=== PATIENT | female | born 1990 | race Caucasian/White ===

== ENCOUNTER 2017-02-20 23:45 | Inpatient (IN) | payer BC, SELFPAY ==
[2017-02-21] MEDS ORDERED: Penicillin G Potassium 5 MILLUNITS in Sodium Chloride 0.9% 100 ML IV ONE (00:59)
[2017-02-21] MEDS ORDERED: Penicillin G Potassium 3 MILLUNITS in Sodium Chloride 0.9% 100 ML IV SCH (01:00)
[2017-02-21] MEDS: Penicillin G Potassium 3 MILLUNITS in Sodium Chloride 0.9% 100 ML IV SCH ×3 (04:44→14:54)
[2017-02-21] MEDS ORDERED: Lactated Ringers 500 ML IV ONE (05:17)
[2017-02-21] MEDS ORDERED: Carboprost Tromethamine 250 MCG/1 ML Amp IM PRN (05:17)
[2017-02-21] MEDS ORDERED: Misoprostol 400 MCG (4 X 100 MCG TAB) RECTAL PRN (05:17)
[2017-02-21] MEDS ORDERED: Ondansetron 4 MG/2 ML SDV IV PRN (05:17)
[2017-02-21] MEDS ORDERED: Lidocaine 1% 30 ML SDV INJECT PRN (05:17)
[2017-02-21] MEDS ORDERED: Methylergonovine 0.2 MG/1 ML Amp IM PRN (05:17)
[2017-02-21] MEDS ORDERED: Sodium Chloride 0.9% 10 ML Syringe FLUSH PRN ×2 (05:17→12:16)
[2017-02-21] MEDS: Oxytocin/Normal Saline 30 UNIT/500 ML BAG IV SCH ×2 (05:20→14:30)
[2017-02-21] MEDS: Lactated Ringers 1,000 ML IV SCH ×3 (05:20→07:40)
[2017-02-21] MEDS ORDERED: fentaNYL 100 MCG/2 ML SDV ONE (06:48)
--- NOTE | 2017-02-21 07:24 | PCM.SN ---
- Free Text/Narrative Note: Called to provide labor pain relief to this patient via intrathecal. After monitors on, and consent signed, proceeded. With patient in supine position, sterile prep/drape. Pt with increased edema of back. Skin wheal with 1% lidocaine. LP X 1 with 24g pencan spinal needle at L3-4. Positive, free flowing clear CSF. No heme, no paresthesia. Then 6mg mpf hyperbaric spinal 0.75% marcaine plus sufenta 20mcg, fentanyl 30mcg, preservative free normal saline 0.4ml and saline wash given intrathecally. Pt then to supine. Maternal SBP and FHT's remained stable after, and patient reported pain relief with subsequent contractions.
--- NOTE | 2017-02-21 09:14 | HP ---
PATIENT IDENTIFICATION: Maria Victoria Ba is a 26-year-old, G2, P1-0-0-1, intrauterine at 39-1/7th weeks on date of admission, 39-2/7th weeks currently, confirmed by 9-11/11-week ultrasound, who presents with contractions. HISTORY OF PRESENT ILLNESS: The patient was evaluated in the clinic earlier today, was found to be 3 cm, 60% effaced, -1 station, vertex suspected, started having contractions thereafter. They have been increasing in frequency and intensely to the point that they are coming every 2 to 3 minutes, felt in the lower back and radiating toward the front and rated 5 to 6/10 on the pain scale and sometimes causing her to breathe through them, nothing seems to make them better, time has made it worse, associated with this has been some minimal bloody show which was noted in the clinic earlier today. To put this in context, she is GBS positive. Records were called for and reviewed as below and supplemented by patient history. ANTEPARTUM LABS: ABO blood type A positive, negative antibody. Rubella immune. RPR nonreactive. Negative hepatitis B surface antigen. Negative hep C, HIV, GC, and Chlamydia. Wet prep within normal limits. One-hour GTT was 98 on 11/22/2016, with platelets of 167,000 and hemoglobin of 11.1. Last platelets on 01/23/2017, were 159,000. OBSTETRICAL HISTORY: On 11/29/2012, 38-1/7th weeks, delivered via spontaneous vaginal delivery of female, weighing 3232 g. ALLERGIES: None. MEDICATIONS: vitamins. PAST MEDICAL/PAST SURGICAL HISTORY: 1. 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 IUD back in 2012 and 2013. She has had a history of extra digits bilaterally in the hands and large toes. 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 2. 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 3. Gestational thrombocytopenia with last . 4. Dysfunctional uterine bleeding, requiring OCPs in the past. 5. Anxiety and depression within the last couple years has been noticed, not currently on any medications. FAMILY HISTORY: Breast cancer in maternal grandmother. Maternal grandfather and paternal grandmother with diabetes. Heart disease in maternal grandfather. Maternal grandfather, paternal grandmother, and grandfather with hypertension. Brother had extra digits and other extended paternal family members have as well. Seizures in maternal grandfather. Negative family history of defects, anesthesia problems or bleeding problems. SOCIAL HISTORY: Lives in [place] with her boyfriend, Jeramy, who presents with her and her mother also presents with her. She is not . She has been working at [employer] in the past. Nonsmoker. No pets in the home. No alcohol or drug use elicited. REVIEW OF SYSTEMS: Otherwise reviewed and felt to be noncontributory. The patient denies any headaches, visual changes, or upper abdominal pain. OBJECTIVE: Vital Signs: Initial evaluation started on 02/20/2017; blood pressure 125/80, heart rate 81, temperature 98.9, the patient's respiratory rate is between 12 and 16. Appearance: Female appears her stated age, breathing through contractions, but answering questions appropriately in between. HEENT: Head is atraumatic. EOMs intact. PERRLA. No scleral icterus. No obvious otorhinorrhea. Mucous membranes moist. Neck: No obvious tenderness. Lungs: Clear to auscultation bilaterally. No increased work of breathing. Heart: S1 and S2. Regular rate and rhythm. No obvious extra heart sounds, murmurs, rubs, or gallops. Abdomen: Soft, nontender, and nondistended. Bowel sounds positive. No other organomegaly, pulsatile masses, or obvious hernias. No rebound, rigidity, or guarding with monitors applied. : Normal external female genitalia. Normal position and presentation of urethra. Vaginal Exam: Per nurse upon initial evaluation, revealed to be 4 cm. She was followed for a few hours more and then was found to be 5 to 6 cm upon my evaluation, bulging bag of water and penicillin had been given, therefore artificial rupture of membranes done with minimal amount of fluid noted, appears to be clear with some bloody show. She was 80% effaced and 0 station. Extremities: Trace peripheral edema. Deep tendon reflexes 2 to 3/4 bilaterally and symmetric in lower extremities. Fused toes between the 1st and 2nd digits noted bilaterally in the feet. Psych: Mood and affect congruent. Judgment and insight intact. Skin: No cyanosis, clubbing, or jaundice. LABORATORY DATA: CBC notable for thrombocytopenia with platelets of 148,000 and white cell count 6.6, hemoglobin 11.6. Tocometer currently reveals contractions every 2 to 4 minutes apart, heart tones in the 130s range and felt to be reactive and reassuring. ASSESSMENT: 1. Intrauterine at 39-2/7th weeks by 9-11/11-week ultrasound. 2. Contractions with cervical change-labor. 3. Group B Streptococcus positive status. Antibiotics were given shortly after admission and will be continued. Please see orders. 4. Gestational thrombocytopenia. Platelets are low. The patient had this in the past, and blood pressures appear to be stable. Continue to follow clinically and closely for any HELLP syndrome or preeclampsia-type issues. 5. History of previa noted early on ultrasounds during the -resolved. 6. History of generalized anxiety disorder and depression, currently controlled. 7. 2, para 1-0-0-1. PLAN: The patient will be admitted, penicillin has been started for GBS positive status. As she has continued to labor, artificial rupture of membranes has been done as above and we will continue to follow clinically and closely. The patient understands and agrees with the above treatment plan. [facility] /[id number]
--- NOTE | 2017-02-21 09:47 | OBOUT ---
DATE: 02/20/2017-02/21/2017 DATE AND TIME OF NST: Date: 02/20/2017 through 02/21/2017. Time: 2354 hours through 0014 hours. REASON FOR NST: 1. Intrauterine at 39-2/7th weeks by 9 and 4/7th-week ultrasound. 2. Gestational thrombocytopenia. 3. History of previa during the . 4. G2, P1-0-0-1. NST INTERPRETATION: During this time period, heart tone baseline is approximately 120, and there are at least two 15 x 15 beat per minute acceleration, making this strip reactive. It is also noted to be reassuring. Tocometer when reading reveals potential of 3 to 4 contractions during this time period felt by patient. ASSESSMENT/PLAN: 1. Nonstress test-reactive and reassuring. 2. Tocometer with contractions. PLAN: Please see admit history and physical for further details. [facility] /[id number]
[2017-02-21] MEDS ORDERED: Oxytocin 10 Units/1 ML SDV IM PRN (12:16)
[2017-02-21] MEDS ORDERED: Benzocaine/Menthol 20%-0.5% Spray 56 GM Canister TOP PRN (12:16)
[2017-02-21] MEDS ORDERED: Simethicone 80 MG Tab.Chew PO PRN (12:16)
[2017-02-21] MEDS ORDERED: Zolpidem 5 MG Tab PO PRN (12:16)
[2017-02-21] MEDS ORDERED: fentaNYL 100 MCG/2 ML SDV ITHECAL ONE (13:24)
[2017-02-21] MEDS: Ibuprofen 800 MG Tab PO PRN (21:46)
[2017-02-21] MEDS: Docusate Sodium 100 MG Cap PO PRN (21:46)
[2017-02-22] MEDS: Acetaminophen 325 MG Tab PO PRN ×2 (01:49→21:19)
[2017-02-22] MEDS: Ibuprofen 800 MG Tab PO PRN ×3 (05:45→22:24)
--- NOTE | 2017-02-22 09:17 | DEL ---
DATE: 02/21/2017 PREOPERATIVE DIAGNOSES: 1. Intrauterine at 39-2/7th weeks by 9-4/7th-week ultrasound. 2. Contractions with cervical change-labor upon admission. 3. Gestational thrombocytopenia. 4. Group B Streptococcus positive-antibiotics given. 5. History of previa earlier in the -resolved. 6. History of generalized anxiety disorder/depression-resolved. 7. 2, para 1-0-0-1. POSTOPERATIVE DIAGNOSES: 1. Intrauterine at 39-2/7th weeks by 9-4/7th-week ultrasound- delivered. 2. Contractions with cervical change-labor upon admission. 3. Gestational thrombocytopenia. 4. Group B Streptococcus positive-antibiotics given. 5. History of previa earlier in the -resolved. 6. History of generalized anxiety disorder/depression-resolved. 7. 2, para 1-0-0-1. PROCEDURES PERFORMED: NST on 02/20/2017, followed by artificial rupture of membranes, Pitocin augmentation, and spontaneous vaginal delivery on 02/21/2017. ANESTHESIA/ANALGESIA: The patient did receive an intrathecal in the first stage of labor. ESTIMATED BLOOD LOSS: 200 mL. FINDINGS: Male, scores and weight pending. 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 Due to her GBS status, penicillin was started immediately upon admission as it was anticipated that she is going to continue into labor. She continued into labor and underwent artificial rupture of membranes on the morning of 02/21/2017, with some Pitocin augmentation. She was found to be complete, I was called to the room, started pushing with contractions. vertex was subsequently delivered in a SANDRA presentation followed by anterior and posterior shoulder with minimal difficulty. Mouth and nares were suctioned. Cord was doubly clamped and cut, and infant was brought over to team for resuscitation. Then, approximately 10 mL of cord blood was obtained for labs. Placenta then delivered with gentle cord traction and fundal massage within 5 minutes. Perineum, vagina, and perirectal areas were then examined without any tears or lacerations. Mother and are currently stable at the time of dictation. [facility] /[id number]
[2017-02-22] MEDS: Docusate Sodium 100 MG Cap PO PRN (09:28)
[2017-02-22] MEDS: Prenatal Multivitamin with Calcium/Folic Acid/Iron Tab PO SCH (09:28)
[2017-02-22] MEDS: Acetaminophen/oxyCODONE 325-5 MG Tab PO PRN (09:28)
--- NOTE | 2017-02-22 10:47 | PN ---
DATE: 02/22/2017 day #1. SUBJECTIVE: The patient is tolerating p.o., ambulating, urinating, passing flatus, had a bowel movement this morning. The patient has been complaining of cramping pain and is requesting something stronger. The patient denies any headaches, visual changes, or upper abdominal pain. OBJECTIVE: Vital Signs: Temperature 98, heart rate 88, blood pressure 108/70, respiratory rate 16. Lungs: Clear to auscultation bilaterally. Heart: S1 and S2. Regular rate and rhythm. Pelvic: Firm uterus approximately -1 below umbilicus. Extremities: Trace pedal edema. No calf pain. LABORATORY DATA: White cell count 6.5, hemoglobin 10.1, and platelets 114,000. ASSESSMENT AND PLAN: 1. day #1, status post spontaneous vaginal delivery. 2. Gestational thrombocytopenia and thrombocytopenia. Platelets now are 114,000, seem to be dropping. There are no other signs or symptoms of concern at this point in time. We will continue to follow clinically and closely. Recheck CBC tomorrow and possible discharge tomorrow. The patient understands and agrees with the above treatment plan. [facility] /[id number]
[2017-02-23] MEDS: Acetaminophen/oxyCODONE 325-5 MG Tab PO PRN (01:01)
[2017-02-23] MEDS: Ibuprofen 800 MG Tab PO PRN (06:38)
[2017-02-23] MEDS: Prenatal Multivitamin with Calcium/Folic Acid/Iron Tab PO SCH (09:52)
[2017-02-23] MEDS: Acetaminophen 325 MG Tab PO PRN (09:52)
[2017-02-23] MEDS: Docusate Sodium 100 MG Cap PO PRN (09:52)
[2017-02-23 11:06] VITALS: BP 129/70
--- NOTE | 2017-02-24 07:18 | DISCH ---
PATIENT ADMITTED ON 02/20/2017 ADMIT DIAGNOSES: 1. Intrauterine at 39 and 2/7th weeks by 9 and 4/7th-week ultrasound. 2. Active labor. 3. Gestational thrombocytopenia. 4. GBS positive - antibiotics given appropriately. 5. History of previa - resolved. 6. History of generalized anxiety disorder/depression - resolved. 7. G2, P1-0-0-1. DISCHARGE DIAGNOSES: 1. Intrauterine at 39 and 2/7th weeks by 9 and 4/7th-week ultrasound-delivered. 2. Anemia of acute blood loss with hemoglobin dropping from 11.6-9.7. 3. Active labor. 4. Gestational thrombocytopenia, platelets stable at 126,000 on date of discharge. 5. GBS positive - antibiotics given appropriately. 6. History of previa - resolved. 7. History of generalized anxiety disorder/depression - resolved. 8. G2, P1-0-0-1. PROCEDURE PERFORMED: NST 02/20/2017. Artificial rupture of membranes, Pitocin augmentation and spontaneous vaginal delivery on 02/21/[address] Jaeger. HISTORY OF PRESENT ILLNESS: Please see H and P. SUMMARY OF HOSPITAL COURSE: The patient was admitted on the above date with the above diagnoses, was found to be in active labor. Penicillin was started due to her GBS positive status. Her platelets were 148,000 upon admit. Subsequently underwent the above procedures, then went on to have a spontaneous vaginal delivery yielding a male with scores of 7 and 9, weighing 3940 g (8 pounds 11 ounces). day #1, please see progress note. day #2, date of discharge, the patient was tolerating p.o., was ambulating, urinating, passing flatus. White cell count 5.2, hemoglobin 9.7, platelets 126,000 which is up from 114,000 on 02/22/2017. PHYSICAL EXAMINATION: Vital Signs: Last set of vitals updated and listed in the chart. Temperature 98, heart rate 88, blood pressure 108/70, and respiratory rate 16. Lungs: Clear to auscultation bilaterally. Heart: S1, S2. Regular rate and rhythm. Abdomen: Firm uterus around the umbilicus. Extremities: Trace pedal edema. No calf pain. She does have bilateral subconjunctival hemorrhages. CONDITION ON DISCHARGE COMPARED TO CONDITION ON ADMISSION: Improved. DISCHARGE INSTRUCTIONS: 1. Diet, as tolerated. 2. Activity, no lifting more than 20 pounds. No sit-ups, straining, and pelvic rest for the next 6 weeks with immediate return to fertility discussed with the patient. 3. Reasons to return or go to the emergency room was discussed with the patient in detail to include but not limited to temp 100.4, foul-smelling discharge, red or hot breasts, or increased vaginal bleeding. DISCHARGE MEDICATIONS: 1. Dblf-cro-[id number] ibuprofen for pain. 2. Iron sulfate 325 b.i.d. x6 weeks. 3. vitamins while breast feeding. Followup on 02/27/2017 with her baby with a repeat CBC at that time due to her thrombocytopenia and anemia. I did discuss with the patient importance of followup and ramifications of not doing so as well as reason to return or go to the emergency room in regard to her and follow up will be scheduled on 02/27/2017 for infant as well. [facility] /[id number]
== END 2017-02-23 11:30 | disposition home or self-care (01) | DRG 560 ==
LOC: DL.OBCHECK 23:45 → DL.OB 02-21 00:25 → OBSVTOIN 02-21 12:03
PROVIDERS: ADMIT Family Medicine; ATTEND Family Medicine
PROC: 10E0XZZ Delivery of Products of Conception, External Approach (ICD-10-PCS; principal; 2017-02-21)
PROC: 10907ZC Drainage of Amniotic Fluid, Therapeutic from Products of Conception, Via Natural or Artificial Opening (ICD-10-PCS; 2017-02-21)
PROC: 00HU33Z Insertion of Infusion Device into Spinal Canal, Percutaneous Approach (ICD-10-PCS; 2017-02-21)
PROC: 3E0R3CZ (ICD-10-PCS; 2017-02-21)
DX: O99.12 Other diseases of the blood and blood-forming organs and certain disorders involving the immune mechanism complicating childbirth (principal); O99.824 Streptococcus B carrier state complicating childbirth; O90.81 Anemia of the puerperium; D69.6 Thrombocytopenia, unspecified; D62 Acute posthemorrhagic anemia; Z3A.39 39 weeks gestation of pregnancy; Z37.0 Single live birth
CPT/HCPCS: 36415; 85027; A9270-GY; J2405; J2540; J2590; J3010; J7050; J7120

== ENCOUNTER 2022-01-22 19:30 | Emergency (ER) | payer BC, OTHER, SELFPAY ==
[2022-01-22] MEDS ORDERED: Acetaminophen/oxyCODONE 325-5 MG Tab PO ONE (19:31)
[2022-01-22 19:38] VITALS: PULSE 97
[2022-01-22] MEDS ORDERED: Sodium Chloride 0.9% 10 ML Syringe FLUSH PRN (19:52)
[2022-01-22] MEDS ORDERED: Sodium Chloride 0.9% 1,000 ML IV ONE (19:54)
[2022-01-22] MEDS ORDERED: fentaNYL 100 MCG/2 ML SDV IVPUSH ONE (19:54)
[2022-01-22] MEDS ORDERED: HYDROmorphone 1 MG/ML Syringe IVPUSH ONE (20:29)
[2022-01-22] MEDS ORDERED: Iopamidol 612 MG/ML 100 ML Bottle IVPUSH ONE (20:50)
[2022-01-22 20:55] LABS: PTT,PARTIAL THROMBOPLSTIN TIME 25.4 SEC (22.0-34.0)
[2022-01-22] MEDS ORDERED: Acetaminophen/oxyCODONE 325-5 MG Tab ONE (22:47)
[2022-01-22 23:01] VITALS: BP 114/76
== END 2022-01-22 23:02 | disposition home or self-care (01) ==
LOC: DL.ED 19:30
DX: N83.202 Unspecified ovarian cyst, left side (principal); Z90.710 Acquired absence of both cervix and uterus
CPT/HCPCS: 36415; 74177; 80053; 81003; 83690; 85025; 85610; 85730; 96361; 96374; 99284; A9270; J1170; J3010; J3490; J7030; Q9967